=== PATIENT | female | born 1955 | race Caucasian/White ===

== ENCOUNTER → 2016-04-20 | Outpatient (CLI) | payer BC ==
[~2016-04-20] VITALS: Ht 162.6 cm; Wt 63.2 kg
[2016-04-20 13:10] VITALS: BP 121/83; PULSE 109; Ht 162.6 cm; Wt 63.2 kg
== END | disposition home or self-care (01) ==
LOC: C.NEUR 12:49
PROVIDERS: ATTEND Internal Medicine Pulmonary Disease
DX: G47.19 Other hypersomnia (principal); R06.83 Snoring; R06.81 Apnea, not elsewhere classified; G47.00 Insomnia, unspecified

== ENCOUNTER → 2016-04-25 | Outpatient (CLI) | payer BC ==
--- NOTE | 2016-04-27 23:38 | POLYSOMNOGRAPH REPORT ---
CLINICAL DATA: A 61-year-old female with BMI of 22.86 referred by myself and Dr. Paniagua for evaluation of possible sleep apnea. She has a history of excessive daytime sleepiness, loud snoring, witnessed apneic episodes and awakening at night gasping for breath. On the evening of 04/25/2016, a home sleep study was performed using a Webs type 3 monitor. RECORDING RESULTS: Total recording time was 10 hours. The patient's estimated sleep time and the patient monitoring time was 7.7 hours. RESPIRATORY DATA: Mild sleep apnea was documented. The DEYANIRA was 7.9. There were 27 obstructive apneic episodes and 34 hypopneic episodes recorded. The longest respiratory event was 58 seconds. OXIMETRY DATA: Transient nocturnal hypoxemia was seen. Oxygen paige was 84%. Mean saturation was 95%. Time below 89% was 2 minutes. HEART RATE DATA: Heart rates ranged from 57-69 beats per minute. SNORING DATA: Snoring was recorded throughout the night. IMPRESSION: Mild sleep apnea/hypopnea with a respiratory event index of 7.9 with mild nocturnal hypoxemia. RECOMMENDATIONS: The patient may benefit from a repeat sleep study with CPAP or use of an oral appliance. MARGOTHD
== END | disposition home or self-care (01) ==
LOC: C.NEUR 08:31
PROVIDERS: ATTEND Internal Medicine Pulmonary Disease
DX: G47.19 Other hypersomnia (principal); G47.00 Insomnia, unspecified; R06.83 Snoring; R06.81 Apnea, not elsewhere classified

== ENCOUNTER → 2016-05-25 | Outpatient (CLI) | payer BC ==
[~2016-05-25] VITALS: Ht 162.6 cm; Wt 62.7 kg
[2016-05-25 16:00] VITALS: BP 119/76; PULSE 86; Ht 162.6 cm; Wt 62.7 kg
== END | disposition home or self-care (01) ==
LOC: C.NEUR 14:59
PROVIDERS: ATTEND Internal Medicine Pulmonary Disease
DX: G47.33 Obstructive sleep apnea (adult) (pediatric) (principal); G47.00 Insomnia, unspecified; G47.19 Other hypersomnia

== ENCOUNTER → 2017-02-14 | Outpatient (CLI) | payer BC ==
--- NOTE | 2017-02-14 14:34 | MAMMOGRAPHY REPORT ---
UNILATERAL RIGHT DIGITAL SCREENING MAMMOGRAM TOMOSYNTHESIS WITH CAD: 02/14/2017 CLINICAL HISTORY: Asymptomatic. Personal history of breast cancer. TECHNIQUE: Breast tomosynthesis in addition to standard 2D mammography was performed. Current study was also evaluated with a Computer Aided Detection (CAD) system. Right CC and MLO 2-D and tomosynthe sis images were obtained. COMPARISON: Comparison is made to exams dated: 02/14/2016 mammogram, 02/08/2015 mammogram, 02/02/2014 mammogram, 01/27/2013 mammogram, 01/22/2012 mammogram, and 01/16/2011 mammogram - [facility]. BREAST COMPOSITION: The tissue of the right breast is heterogeneously dense, which may obscure small masses. FINDINGS: There are no suspicious masses, calcifications, or areas of architectural distortion noted in the right breast. There has been no significant interval change compared to prior exams. Status post left mastectomy. IMPRESSION: ACR BI-RADS CATEGORY 2: BENIGN There is no mammographic evidence of malignancy in the right breast. A 1 year screening mammogram is recommended. The patient will receive written notification of the results. Approximately 10% of breast cancers are not detected with mammography. A negative mammographic report should not delay biopsy if a clinically suggestive mass is present. Cherelle Dolan M.D. ah/:02/14/2017 10:20:48 [place] Trimmer: Arminda NELSON([place])(M), [facility] letter sent: Normal 1/2 BI-RADS Code: ACR BI-RADS Category 2: Benign
== END | disposition home or self-care (01) ==
LOC: C.MAMM 08:29
PROVIDERS: ATTEND Obstetrics & Gynecology
DX: Z12.31 Encounter for screening mammogram for malignant neoplasm of breast (principal); Z85.3 Personal history of malignant neoplasm of breast

== ENCOUNTER → 2017-03-19 | Outpatient (CLI) | payer OTHER | END | disposition home or self-care (01) | LOC: C.PAPS 10:54 | PROVIDERS: ATTEND Obstetrics & Gynecology | DX: Z12.4 Encounter for screening for malignant neoplasm of cervix (principal) ==